=== PATIENT | male | born 1960 | race Hispanic/Latino ===

== ENCOUNTER 2018-02-26 13:57 | Emergency (ER) | payer MEDICARE ==
[2018-02-26 14:26] VITALS: BP 124/73
--- NOTE | 2018-02-26 16:12 | Emergency Department Report ---
ED Back Pain/Injury HPI - General Chief Complaint: Back Pain/Injury Stated Complaint: BACK SPASMS Source: patient Mode of arrival: Ambulatory Limitations: No Limitations - History of Present Illness Initial Comments: This is a 57-year-old male who presents with chronic low back pain. Patient states pain increased this morning around 2 AM. Patient states he can barely walk since. He went to the restroom this morning and barely made it back. He is currently seeing an orthopedic surgeon and taking gabapentin which is not improving symptoms. Patient reports pain is 10 out of 10 on pain scale worse with movement. He reports pain is radiating down both legs. He was diagnosed with arthritis and spinal spurs from several MRI and CT scans. He denies recent injury, change in voiding and bowel pattern, chest pain, shortness of breath, frequency, urgency, dysuria, erythema, numbness or tingling , or swelling. MD Complaint: back pain -: year(s) Time: 02:00 Similar Symptoms Previously: Yes Place: home Radiation: left leg, right leg Severity: severe Severity scale (0 -10): 10 Quality: aching Consistency: intermittent Improves With: none Worsens With: movement, walking Context: unknown Associated Symptoms: denies other symptoms Treatments Prior to Arrival: other medications - Related Data Home Medications Medication Instructions Recorded Confirmed Last Taken Clopidogrel [Plavix] 75 mg PO BID 05/20/13 05/21/13 05/20/13 21:00 Mirtazapine [Remeron] 30 mg PO HS 05/20/13 05/21/13 05/20/13 21:00 PARoxetine [Paxil] 40 mg PO DAILY 05/20/13 05/21/13 05/20/13 09:00 amLODIPine [Norvasc] 5 mg PO DAILY 05/20/13 05/21/13 05/20/13 09:00 risperiDONE [Risperdal] 2 mg PO HS 05/20/13 05/21/13 05/20/13 21:00 traZODone [Desyrel] 100 mg PO HS 05/20/13 05/21/13 05/20/13 21:00 Previous Rx's Medication Instructions Recorded Last Taken Type Ciprofloxacin 0.3% (Nf) [Cipro 1 drop OS Q3H #7 day 05/21/13 Unknown Rx 0.3% Ophth Soln] Ketorolac Ophth Soln (Nf) [Acular 1 drop OP QID #1 bottle 05/21/13 Unknown Rx Ophth Soln 0.5%] Naproxen [Naprosyn] 500 mg PO BID #12 tablet 02/26/18 Unknown Rx methOCARBAMOL [Robaxin TAB] 500 mg PO BID PRN #10 tab 02/26/18 Unknown Rx traMADol [Ultram 50 MG tab] 50 mg PO Q6HR PRN #8 tablet 02/26/18 Unknown Rx Allergies Allergy/AdvReac Type Severity Reaction Status Date / Time erythromycin base Allergy Hives Verified 05/20/13 23:59 [From [email or web address]] prochlorperazine edisylate Allergy Vomiting Verified 05/20/13 23:59 [From Compazine] prochlorperazine maleate Allergy Vomiting Verified 05/20/13 23:59 [From Compazine] ED Review of Systems ROS: Stated complaint: BACK SPASMS Other details as noted in HPI Constitutional: denies: chills, fever Respiratory: denies: cough, shortness of breath, wheezing Cardiovascular: denies: chest pain, palpitations Gastrointestinal: denies: abdominal pain, nausea, diarrhea Musculoskeletal: back pain (low back pain radiating down BLE). denies: joint swelling, arthralgia Skin: denies: rash, lesions Neurological: denies: headache, weakness, paresthesias Psychiatric: denies: anxiety, depression ED Past Medical Hx - Past Medical History cardiac disease ED Back Pain Physical Exam - Exam General: Vital signs noted. No distress. Alert and acting appropriately. Back/Abdomen: Yes Sacroiliac Tenderness (bilateral), Yes Straight Leg Raise Pain (RLE), No Abdominal Tenderness, No Perithoracic Tenderness, No Perilumbar Tenderness, No Flank Tenderness Neuro: Yes Normal Sensation, Yes Normal DTR's, Yes Normal Gait, No Motor Weakness ED Course Vital Signs 02/26/18 14:24 Temperature 99.1 F Pulse Rate 106 H Respiratory 20 Rate Blood Pressure 124/73 O2 Sat by Pulse 94 Oximetry ED Medical Decision Making - Medical Decision Making Patient was examined by me. Vitals are normal and patient is in no acute distress. Given dexamethasone 8 mg IM and norco 5 mg po once while in ER. Start naproxen, robaxin, and tramadol for chronic low back pain and sciatica. Follow up with Orthopedic surgeon. Referral to pain management. Patient discharged home in stable condition. Follow up with PCP in 2-3 days. Critical care attestation.: If time is entered above; I have spent that time in minutes in the direct care of this critically ill patient, excluding procedure time. ED Disposition Clinical Impression: Arthralgia of back Low back pain Qualifiers: Chronicity: acute Back pain laterality: bilateral Sciatica presence: with sciatica Sciatica laterality: sciatica of right side Qualified Code(s): M54.41 - Lumbago with sciatica, right side Chronic low back pain Qualifiers: Back pain laterality: bilateral Sciatica presence: with sciatica Sciatica laterality: bilateral sciatica Qualified Code(s): M54.42 - Lumbago with sciatica , left side; M54.41 - Lumbago with sciatica, right side; G89.29 - Other chronic pain Disposition: TO HOME OR SELFCARE Is pt being admited?: No Does the pt Need Aspirin: No Condition: Stable Instructions: Arthralgia (ED), Chronic Back Pain (ED) Additional Instructions: Rest Use ice or heat on affected area for 20 minutes and off for 2 hours. Take pain medication as needed for pain. Don't drive or operate heavy machinery while taking muscle relaxers because they may cause drowsiness. Follow up with Primary Care Provider in 2-3 days. Prescriptions: methOCARBAMOL [Robaxin TAB] 500 mg PO BID PRN #10 tab PRN Reason: Muscle Spasm Naproxen [Naprosyn] 500 mg PO BID #12 tablet traMADol [Ultram 50 MG tab] 50 mg PO Q6HR PRN #8 tablet PRN Reason: Pain Referrals: [facility] [Provider Group] - 3-5 Days [facility] [Provider Group] - 3-5 Days [facility] [Provider Group] - 3-5 Days Time of Disposition: 16:25 Print Language: SWEDISH
[2018-02-26] MEDS ORDERED: DECADRON IM ONE (16:16)
[2018-02-26] MEDS ORDERED: NORCO 5/325 PO ONE (16:16)
== END 2018-02-26 16:58 | disposition home or self-care (01) ==
LOC: ED 13:57
DX: G89.29 Other chronic pain (principal); M54.5 Low back pain; Z88.1 Allergy status to other antibiotic agents; Z88.8 Allergy status to other drugs, medicaments and biological substances
CPT/HCPCS: 96372; 99282; J1100